=== PATIENT | female | born 1985 | race African-American/Black ===

== ENCOUNTER 2016-09-08 11:13 | Emergency (ER) | payer OTHER ==
[~2016-09-08 11:13] MED LIST: AMOXICILLIN PO; BENADRYL PO; CIPRO PO; DIFLUCAN PO; DOXYCYCLINE; FLAGYL; FLAGYL PO; FLEXERIL PO; IBUPROFEN PO; METROGEL55 GM TP
[2016-09-08 11:26] LABS: INFLUENZA A NEG (NEG); INFLUENZA B NEG (NEG)
== END 2016-09-08 13:20 | disposition home or self-care (01) ==
LOC: CFTX 11:13
PROVIDERS: Nurse Practitioner
DX: J06.9 Acute upper respiratory infection, unspecified (principal); M54.5 Low back pain; I10 Essential (primary) hypertension; Z88.1 Allergy status to other antibiotic agents
CPT/HCPCS: 87651; 87804; 99283

== ENCOUNTER 2016-12-03 08:00 | Emergency (ER) | payer OTHER | END 2016-12-03 09:55 | disposition home or self-care (01) | LOC: CED 08:00 | DX: R22.0 Localized swelling, mass and lump, head (principal); M25.561 Pain in right knee; F41.9 Anxiety disorder, unspecified; F32.9 Major depressive disorder, single episode, unspecified; G40.909 Epilepsy, unspecified, not intractable, without status epilepticus; J45.909 Unspecified asthma, uncomplicated; I10 Essential (primary) hypertension; Z88.8 Allergy status to other drugs, medicaments and biological substances | CPT/HCPCS: 84703; 99284 ==

== ENCOUNTER 2016-12-28 09:07 | Emergency (ER) | payer OTHER | END 2016-12-28 11:23 | disposition home or self-care (01) | LOC: CED 09:07 → CFTX 10:24 → CED 10:24 | DX: Z71.89 Other specified counseling (principal); I10 Essential (primary) hypertension; Z88.8 Allergy status to other drugs, medicaments and biological substances | CPT/HCPCS: 99283 ==

== ENCOUNTER 2017-01-30 12:15 | Emergency (ER) | payer OTHER ==
[~2017-01-30] VITALS: Ht 170.2 cm; Wt 84.4 kg
[2017-01-30 13:25] LABS: URINE SOURCE CLEAN CATCH
[2017-01-30 13:45] LABS: URINE APPEARANCE CLOUDY; URINE BILIRUBIN NEG (NEG); URINE BLOOD TRACE (NEG); URINE COLOR YELLOW; URINE GLUCOSE NEG (NEG); URINE KETONE TRACE (NEG); URINE LEUKOCYTE ESTERASE TRACE (NEG); URINE NITRATE NEG (NEG); URINE PH 5.5 (5-8); URINE PROTEIN NEG (NEG); URINE SPECIFIC GRAVITY 1.024 (1.003-1.035)
[2017-01-30 13:53] LABS: CULTURE INDICATED? YES; URINE BACTERIA AUWI 2+ (NEGATIVE); URINE SQUAMOUS EPITHELIAL CELL MOD /[HPF]
[2017-01-30 14:22] LABS: U HYALINE CASTS AUWI 0-2 /[LPF]; URINE MUCUS PRESENT
[2017-02-01 22:54] LABS: CHLAMYDIA TRACH Not Detected (Not Detected); N GONOR Not Detected (Not Detected)
== END 2017-01-30 15:15 | disposition home or self-care (01) ==
LOC: CED 12:15 → CFTX 12:15 → CED 13:12 → CFTX 13:12
PROVIDERS: Nurse Practitioner
DX: N76.0 Acute vaginitis (principal); N39.0 Urinary tract infection, site not specified; K21.9 Gastro-esophageal reflux disease without esophagitis; F41.9 Anxiety disorder, unspecified; Z88.8 Allergy status to other drugs, medicaments and biological substances
CPT/HCPCS: 81003; 84703; 87086; 87088; 87186; 87491; 87591; 87808; 87905; 99283

== ENCOUNTER 2017-02-01 03:22 | Emergency (ER) | payer OTHER | END 2017-02-01 05:34 | disposition home or self-care (01) | LOC: CED 03:22 → CFTX 04:40 → CED 05:34 | DX: N76.0 Acute vaginitis (principal); I10 Essential (primary) hypertension; F41.9 Anxiety disorder, unspecified; K21.9 Gastro-esophageal reflux disease without esophagitis; Z79.899 Other long term (current) drug therapy | CPT/HCPCS: 99283 ==